=== PATIENT | female | born 1945 | race Caucasian/White ===

== ENCOUNTER → 2021-01-22 | Outpatient (CLI) | payer MEDICARE, OTHER | LOC: HEART 5 14:29 | DX: J44.9 Chronic obstructive pulmonary disease, unspecified (principal); J90 Pleural effusion, not elsewhere classified; I51.7 Cardiomegaly | CPT/HCPCS: 71046; 94060; 94729 ==

== ENCOUNTER → 2021-05-20 | Outpatient (CLI) | payer MEDICARE, OTHER | LOC: HEART 5 10:00 | DX: R00.2 Palpitations (principal) ==

== ENCOUNTER → 2021-06-22 | Outpatient (CLI) | payer MEDICARE, OTHER | LOC: ECHO 10:45 | DX: I48.0 Paroxysmal atrial fibrillation (principal) | CPT/HCPCS: ECHO; 93306 ==